=== PATIENT | female | born 1985 | race Caucasian/White ===

== ENCOUNTER 2024-05-28 02:15 | Inpatient (IN) | payer BC, OTHER ==
[~2024-05-28] VITALS: Ht 160 cm; Wt 50.0 kg
[2024-05-28] MEDS: HALOPERIDOL LACTATE 5 MG/ML VIAL IM ONE ×2 (03:00→11:36)
[2024-05-28] MEDS: DiphenhydrAMINE HCL 50 MG/ML VIAL IM ONE ×2 (03:01→11:36)
[2024-05-28] MEDS: LORazepam 2 MG/ML VIAL IM ONE ×2 (03:01→11:37)
[2024-05-28 05:54] LABS: BASOPHILS % (AUTO) 0.8 % (0.0-2.0); EOSINOPHILS % (AUTO) 0 % (1.0-6.0); HEMATOCRIT 35.3 % (36-46); HEMOGLOBIN 11.1 g/dL (12.0-16.0); LYMPHOCYTES # (AUTO) 2.5 K/uL (1.0-4.8); LYMPHOCYTES % (AUTO) 12.6 % (22.0-44.0); MEAN CORPUSCULAR HEMOGLOBIN 30.9 pg (26.0-34.0); MEAN CORPUSCULAR HGB CONC 31.5 G/dL (31.0-37.0); MEAN CORPUSCULAR VOLUME 98 fL (80-100); MONOCYTES # (AUTO) 1.9 K/uL (0.1-1.0); MONOCYTES % (AUTO) 9.4 % (2.0-9.0); NEUTROPHILS # (AUTO) 15.6 K/uL (1.8-7.7); NEUTROPHILS % (AUTO) 77.2 % (40.0-70.0); PLATELET COUNT (AUTO) 397 K/uL (150-450); RED CELL DISTRIBUTION WIDTH 16.8 % (11.5-14.5); WHITE BLOOD COUNT (AUTO) 20.2 K/uL (4.5-11.0)
[2024-05-28 06:13] LABS: ANION GAP 13 mmol/L (8-16); CALCIUM, TOTAL 9.2 mg/dL (8.8-10.5); CARBON DIOXIDE 21 mmol/L (22-29); CHLORIDE 108 mmol/L (98-107); CREATININE 0.99 mg/dL (0.60-1.30); GLOMERULAR FILTR. RATE CALC > 60 mL/min (>60); GLUCOSE,RANDOM 93 mg/dL (70-110); POTASSIUM 3.8 mmol/L (3.5-5.1); SODIUM SERUM 142 mmol/L (136-145); UREA NITROGEN, BLOOD 26 mg/dL (7-18)
[2024-05-28 06:18] LABS: ALCOHOL, BLOOD (SERUM) < 3 mg/dL (0-10)
[2024-05-28 07:06] LABS: RBC MORPHOLOGY COMMENT NORMAL RBC MORPH
[2024-05-28 07:17] LABS: COVID AG,FIA SOURCE NASAL SWAB
[2024-05-28 07:41] LABS: SARS-COV2 (COVID) ANTIGEN,FIA Negative (Negative)
[2024-05-28] MEDS: HALOPERIDOL 5 MG TABLET PO ONE (11:24)
[2024-05-28] MEDS: LORazepam 2 MG TABLET PO ONE (11:24)
[2024-05-28] MEDS: DiphenhydrAMINE HCL 25 MG CAPSULE PO ONE (11:24)
[2024-05-28 19:21] LABS: PH,URINE DRUG SCREEN 5.5 (5.0-8.0)
[2024-05-28 19:28] LABS: ALCOHOL, URINE DRUG SCREEN NEGATIVE (NEGATIVE); AMPHET/METH SCREEN,URINE POSITIVE (NEGATIVE); BARBITURATE SCREEN, URINE NEGATIVE (NEGATIVE); BENZODIAZEPINES SCREEN,URINE POSITIVE (NEGATIVE); CANNABINOID SCREEN,URINE NEGATIVE (NEGATIVE); COCAINE SCREEN,URINE NEGATIVE (NEGATIVE); METHADONE SCREEN, URINE NEGATIVE (NEGATIVE); OPIATE SCREEN,URINE NEGATIVE (NEGATIVE); PHENCYCLIDINE SCREEN,URINE NEGATIVE (NEGATIVE)
[2024-05-29] MEDS: HALOPERIDOL 5 MG TABLET PO PRN (06:58)
[2024-05-29] MEDS: LORazepam 2 MG TABLET PO PRN (06:59)
[2024-05-29] MEDS: DiphenhydrAMINE HCL 50 MG/ML VIAL IM ONE (07:51)
[2024-05-29] MEDS: LORazepam 2 MG/ML VIAL IM ONE (07:52)
[2024-05-29] MEDS: HALOPERIDOL LACTATE 5 MG/ML VIAL IM ONE (07:52)
[2024-05-29 08:51] LABS: APPEARANCE,URINE TURBID (CLEAR); BILIRUBIN,URINE NEGATIVE (NEGATIVE); COLOR,URINE YELLOW (YELLOW); GLUCOSE, URINE (UA) NEGATIVE (NEGATIVE); LEUKOCYTE ESTERASE ,URINE TRACE (NEGATIVE); NITRATE,URINE NEGATIVE (NEGATIVE); OCCULT BLOOD,URINE NEGATIVE (NEGATIVE); PROTEIN,URINE 30-70 mg/dL (NEGATIVE); SPECIFIC GRAVITIY, URINE 1.032 (1.003-1.030); UROBILINOGEN,URINE <=1.0 mg/dL (<=1.0)
[2024-05-29 08:59] LABS: AMORPHOUS SEDIMENT,UR Many /LPF (None Seen); BACTERIA,URINE None Seen /HPF (None Seen); RBC,URINE None Seen /HPF (0-2); WBC,URINE 0-2 /HPF (0-5)
[2024-05-29 13:28] LABS: BASOPHILS % (AUTO) 0.8 % (0.0-2.0); EOSINOPHILS % (AUTO) 3.1 % (1.0-6.0); HEMATOCRIT 34.9 % (36-46); HEMOGLOBIN 11.3 g/dL (12.0-16.0); LYMPHOCYTES # (AUTO) 1.8 K/uL (1.0-4.8); MEAN CORPUSCULAR HEMOGLOBIN 31.3 pg (26.0-34.0); MEAN CORPUSCULAR HGB CONC 32.5 G/dL (31.0-37.0); MEAN CORPUSCULAR VOLUME 96 fL (80-100); MONOCYTES # (AUTO) 0.6 K/uL (0.1-1.0); MONOCYTES % (AUTO) 5.7 % (2.0-9.0); NEUTROPHILS # (AUTO) 7.4 K/uL (1.8-7.7); NEUTROPHILS % (AUTO) 72.4 % (40.0-70.0); PLATELET COUNT (AUTO) 500 K/uL (150-450); RED BLOOD CELL COUNT(AUTO) 3.63 MIL/uL (4.00-5.20); WHITE BLOOD COUNT (AUTO) 10.2 K/uL (4.5-11.0)
[2024-05-29 13:32] LABS: ANION GAP 9 mmol/L (8-16); CALCIUM, TOTAL 8.7 mg/dL (8.8-10.5); CARBON DIOXIDE 24 mmol/L (22-29); CHLORIDE 104 mmol/L (98-107); CREATININE 0.87 mg/dL (0.60-1.30); GLOMERULAR FILTR. RATE CALC > 60 mL/min (>60); GLUCOSE,RANDOM 108 mg/dL (70-110); POTASSIUM 3.6 mmol/L (3.5-5.1); SODIUM SERUM 137 mmol/L (136-145); UREA NITROGEN, BLOOD 13 mg/dL (7-18)
[2024-05-29 13:55] LABS: CREATINE KINASE, TOTAL ONLY 440 U/L (26-192)
[2024-05-29] MEDS ORDERED: CloNIDine HCL 0.1 MG TABLET PO PRN (20:00)
[2024-05-29] MEDS ORDERED: PETROLATUM,WHITE 28 GM JELLY TP PRN (20:00)
[2024-05-29] MEDS ORDERED: ACETAMINOPHEN 325 MG TABLET PO PRN (20:00)
[2024-05-29] MEDS ORDERED: LOPERAMIDE HCL 2 MG CAPSULE PO PRN (20:00)
[2024-05-29] MEDS ORDERED: ALBUTEROL SULFATE HFA 90 MCG/PUFF 8 GM INHALER IH PRN (20:00)
[2024-05-29] MEDS ORDERED: MAGNESIUM HYDROXIDE SUSPENSION 30 ML UDCUP PO PRN (20:00)
[2024-05-29] MEDS ORDERED: ONDANSETRON HCL 4 MG TABLET PO PRN (20:00)
[2024-05-29] MEDS ORDERED: DOCUSATE SODIUM 100 MG CAPSULE PO PRN (20:00)
[2024-05-29] MEDS ORDERED: OMEPRAZOLE 20 MG CAPSULE PO PRN (20:00)
[2024-05-29] MEDS ORDERED: BENZOCAINE/MENTHOL LOZENGE PO PRN (20:00)
[2024-05-29 20:05] VITALS: BP 135/86; PULSE 91; RESP 16; TEMP 98; O2SAT 95
[2024-05-30] MEDS: BACITRACIN 28 GM OINTMENT TP SCH (08:48)
[2024-05-30] MEDS: NICOTINE 21 MG/24 HOUR PATCH TD SCH (08:48)
[2024-05-30 09:18] VITALS: BP 113/68; PULSE 77; RESP 17; TEMP 97.6; O2SAT 98
[2024-05-30 20:50] VITALS: BP 105/70; PULSE 88; RESP 17; TEMP 98; O2SAT 99
[2024-05-31 09:47] VITALS: BP 110/75; PULSE 91; RESP 16; TEMP 97.3; O2SAT 97
[2024-05-31] MEDS ORDERED: OLAN5TAB52 PO (11:48)
[2024-05-31 16:47] VITALS: RESP 18
[2024-05-31] MEDS: IBUPROFEN 600 MG TABLET PO PRN (16:47)
[2024-05-31 17:47] VITALS: RESP 16
[2024-05-31] MEDS: OLANZapine 5 MG TABLET PO SCH (20:53)
[2024-05-31 22:37] VITALS: BP 112/76; PULSE 72; RESP 16; TEMP 97.1; O2SAT 99
[2024-05-31 23:40] VITALS: BP 100/57; PULSE 70; RESP 18; TEMP 97.3; O2SAT 97
[2024-06-01] MEDS: BACITRACIN 28 GM OINTMENT TP PRN (06:04)
[2024-06-01 08:38] VITALS: BP 137/67; PULSE 89; RESP 17; TEMP 97.5; O2SAT 99
[2024-06-01 20:00] VITALS: BP 99/58; PULSE 88; RESP 16; TEMP 98.2; O2SAT 97
[2024-06-02 08:35] VITALS: BP 116/71; PULSE 82; RESP 17; TEMP 98; O2SAT 98
[2024-06-02 17:50] VITALS: RESP 17
[2024-06-02 20:49] VITALS: PULSE 84; RESP 18; TEMP 98; O2SAT 97
[2024-06-03 08:27] VITALS: BP 120/69; PULSE 97; RESP 16; TEMP 97.8; O2SAT 98
[2024-06-03] MEDS: MAG HYDROX/ALUMINUM HYD/SIMETH ES 30 ML SUSPENSION UDCUP PO PRN (17:21)
[2024-06-03 20:00] VITALS: BP 90/50; PULSE 77; RESP 17; TEMP 96.9; O2SAT 98
[2024-06-04 13:27] VITALS: BP 112/79; PULSE 91; RESP 18; TEMP 97.8; O2SAT 98
[2024-06-04 21:16] VITALS: BP 132/86; PULSE 80; RESP 17; TEMP 97.6; O2SAT 100
[2024-06-05 08:47] VITALS: BP 115/77; PULSE 97; RESP 17; TEMP 97.4; O2SAT 97
[2024-06-05 20:58] VITALS: BP 108/60; PULSE 78; RESP 17; TEMP 97.7; O2SAT 97
[2024-06-06] MEDS: ZOLPIDEM TARTRATE 10 MG TABLET PO PRN (01:26)
[2024-06-06 09:42] VITALS: BP 105/60; PULSE 82; RESP 18; TEMP 97.5; O2SAT 98
[2024-06-06 20:45] VITALS: BP 107/60; PULSE 81; RESP 18; TEMP 97.1; O2SAT 98
== END 2024-06-07 10:20 | disposition home or self-care (01) | DRG 885 ==
LOC: EMS 02:15 → B3A 05-29 16:22
PROVIDERS: ADMIT Psychiatry & Neurology Psychiatry; ATTEND Psychiatry & Neurology Psychiatry
DX: F20.0 Paranoid schizophrenia (principal); R45.851 Suicidal ideations; F33.9 Major depressive disorder, recurrent, unspecified; F17.200 Nicotine dependence, unspecified, uncomplicated; Z20.822 Contact with and (suspected) exposure to COVID-19; F15.10 Other stimulant abuse, uncomplicated; G47.00 Insomnia, unspecified; I10 Essential (primary) hypertension; K59.00 Constipation, unspecified; D72.829 Elevated white blood cell count, unspecified; Z56.0 Unemployment, unspecified
CPT/HCPCS: 80048; 80307; 81001; 82550; 84703; 85025; 99291; G0480; J1200; J1630; J2060